=== PATIENT | male | born 1955 | race Caucasian/White ===

== ENCOUNTER 2021-03-24 20:50 | Inpatient (IN) ==
[2021-03-24] MEDS ORDERED: IOPAMIDOL 100 ML BOTTLE IV ONE (20:51)
[2021-03-24] MEDS ORDERED: KETOROLAC 15 MG/ML VIAL IV ONE (21:26)
[2021-03-24 21:50] LABS: POC Blood Urea Nitrogen 18 mg/dL (6-20); POC CO2 23 mmol/L (22-30); POC Calcium, Ionized 1.08 mmEq/L (1.16-1.32); POC Chloride 94 mEq/L (96-108); POC Creatinine 1.1 mg/dL (0.6-1.2); POC Glucose, Random 114 mg/dL (70-105); POC Hematocrit 42 % (41-55); POC Potassium 3.6 mEql/L (3.3-5.1); POC Sodium 128 mEq/L (133-145)
[2021-03-24 22:30] LABS: Basophils # (Auto) 0.03 K/mcL (0.00-0.20); Basophils % (Auto) 0.3 % (0.0-2.0); Eosinophils # (Auto) 0 K/mcL (0.00-0.70); Eosinophils % (Auto) 0 % (0.0-7.0); Hematocrit 40.6 % (41.0-55.0); Hemoglobin 13.4 g/dL (13.5-16.5); Lymphocytes # (Auto) 0.33 K/mcL (1.50-4.80); Lymphocytes % (Auto) 3.1 % (15.0-49.0); Mean Cell Volume 82.4 fL (80.0-100.0); Mean Platelet Volume 10.6 fL (7.4-10.4); Monocytes % (Auto) 4.7 % (1.0-12.0); Neutrophils % (Auto) 91.9 % (38.0-78.0); Platelet Count 144 K/mcL (140-440); RBC 4.93 M/mcL (4.50-5.90); Red Cell Distribution Width 15.2 % (11.5-14.5); WBC 10.7 K/mcL (4.5-11.0)
[2021-03-24] MEDS ORDERED: VANCOMYCIN 1,500 MG in 0.9 % SODIUM CHLORIDE 500 ML IV ONE (23:36)
[2021-03-24] MEDS ORDERED: ONDANSETRON 4 MG/2 ML VIAL IV PRN (23:47)
[2021-03-24] MEDS ORDERED: cefTRIAXone 1 GM VIAL IV ONE (23:49)
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
[2021-03-25] MEDS: 0.9 % SODIUM CHLORIDE 10 ML SYRINGE IV SCH ×6 (01:45→21:45)
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
[2021-03-25] MEDS ORDERED: MAGNESIUM SULFATE 2 GM/50 ML BAG IV PRN (08:23)
[2021-03-25] MEDS ORDERED: ACETAMINOPHEN 325 MG TABLET PO PRN (08:23)
[2021-03-25] MEDS ORDERED: ONDANSETRON 4 MG ODT TABLET SL PRN (08:23)
[2021-03-25] MEDS ORDERED: BISACODYL 10 MG SUPP.RECT PR PRN (08:23)
[2021-03-25] MEDS ORDERED: POLYETHYLENE GLYCOL 3350 17 GM PACKET PO PRN (08:23)
[2021-03-25] MEDS ORDERED: MELATONIN 3 MG TABLET PO PRN (08:23)
[2021-03-25] MEDS ORDERED: POTASSIUM CHLORIDE 20 MEQ PACKET PO PRN (08:23)
[2021-03-25] MEDS ORDERED: ACETAMINOPHEN 650 MG/65 ML BAG IV PRN (08:23)
[2021-03-25] MEDS ORDERED: ONDANSETRON 4 MG/2 ML VIAL IV PRN (08:23)
[2021-03-25] MEDS ORDERED: POTASSIUM CHLORIDE 40 MEQ in DEXTROSE 5% IN WATER 500 ML IV PRN (08:23)
--- NOTE | 2021-03-25 08:29 | Internal Med History&Physical ---
HPI History of Present Illness Patient information: Note initiated : 03/25/21 at 8:29 am Service Date, if different from initiated Date: [] Patient: Stoney Oconnor 65 y/o M admitted on 03/25/21 for "bad lung". Chief Complaint: [] History of present illness: Mr. Oconnor is a 65 year [facility] M [facility] All Active Problems Allergic reaction (Acute) Cellulitis (Acute) Cigarette smoker (Chronic) History of CVA (cerebrovascular accident) (Chronic) Medical History Cigarette smoker Half pack per day declared on 07/18/2020 History of CVA (cerebrovascular accident) Per patient, reported on 07/18/2020. MEDS/ALLERGIES Home Medications and Allergies Home Medications Medication Instructions Recorded Confirmed Type No Known Home Meds 03/25/21 03/25/21 History Allergies Allergy/AdvReac Type Severity Reaction Status Date / Time Amoxicillin Allergy Severe Anaphylaxis Verified 03/24/21 20:51 EXAM Constitutional Vitals: Temp Pulse Resp BP Pulse Ox 98.6 F 103 H 14 110/66 97 03/25/21 08:00 03/25/21 08:00 03/25/21 08:00 03/25/21 08:00 03/25/21 08:00 DATA Data Completed and Pending Labs: Labs from last 24 hours 03/24/21 03/24/21 21:35 21:35 WBC 10.7 RBC 4.93 Hgb 13.4 L Hct 40.6 L POC Hct 42 MCV 82.4 MCH 27.2 MCHC 33.0 RDW 15.2 H Plt Count 144 MPV 10.6 H Neut % (Auto) 91.9 H Lymph % (Auto) 3.1 L [place] % (Auto) 4.7 Eos % (Auto) 0 Baso % (Auto) 0.3 Lymph # (Auto) 0.33 L [place] # (Auto) 0.50 Eos # (Auto) 0 Baso # (Auto) 0.03 Absolute Neutrophils 9.86 H POC Sodium 128 L POC Potassium 3.6 POC Chloride 94 L POC Total CO2 23 POC BUN 18 POC Creatinine 1.1 POC Glucose 114 H POC WB Ioniz Calcium 1.08 L A/P Time Spent With Patient Time: Total time spent is greater than 50% in coordination of care (as documented) at patient's floor/unit and/or counseling patient: QUALITY Stroke Symptom Onset Unknown: No VTE Deep Vein Thrombosis/Pulmonary Embolism Present on Admission: No
[2021-03-25] MEDS ORDERED: VANCOMYCIN PER PHARMACY IV SCH (08:30)
[2021-03-25] MEDS: HEPARIN 5,000 UNIT/ML VIAL SQ SCH ×2 (10:01→21:41)
[2021-03-25] MEDS: DOCUSATE SODIUM 100 MG CAPSULE PO SCH ×4 (10:01→21:42)
[2021-03-25] MEDS: VANCOMYCIN 1,000 MG in 0.9 % SODIUM CHLORIDE 250 ML IV SCH ×2 (10:01→21:41)
[2021-03-25] MEDS: MULTIVIT,THER IRON,CA,FA & MIN 1 TABLET PO SCH (10:01)
[2021-03-25] MEDS: 0.9 % SODIUM CHLORIDE 1,000 ML IV SCH (10:01)
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
[2021-03-25] MEDS: CLINDAMYCIN 600 MG in DEXTROSE 5% IN WATER 50 ML IV SCH ×4 (11:59→23:39)
[2021-03-25 14:50] LABS: Osmolality,Urine 981 mOSM/kg (80-1000)
[2021-03-25] MEDS: cefTRIAXone 2 GM in DEXTROSE 5% IN WATER 50 ML IV SCH (18:31)
[2021-03-25] MEDS ORDERED: SENNOSIDES 1 TABLET PO SCH (21:00)
[2021-03-25] MEDS: SENNOSIDES/DOCUSATE SODIUM 1 TAB TABLET PO SCH (21:42)
[2021-03-26] MEDS: 0.9 % SODIUM CHLORIDE 1,000 ML IV SCH (05:48)
[2021-03-26] MEDS: CLINDAMYCIN 600 MG in DEXTROSE 5% IN WATER 50 ML IV SCH ×3 (06:11→17:04)
[2021-03-26] MEDS: 0.9 % SODIUM CHLORIDE 10 ML SYRINGE IV SCH ×4 (06:13→20:32)
[2021-03-26 07:40] LABS: Basophils # (Auto) 0.02 K/mcL (0.00-0.20); Basophils % (Auto) 0.3 % (0.0-2.0); Eosinophils # (Auto) 0.01 K/mcL (0.00-0.70); Eosinophils % (Auto) 0.2 % (0.0-7.0); Hematocrit 33.8 % (41.0-55.0); Hemoglobin 11.2 g/dL (13.5-16.5); Lymphocytes % (Auto) 6.9 % (15.0-49.0); Mean Cell Volume 81.6 fL (80.0-100.0); Mean Corpuscular HGB Conc 33.1 g/dL (31.0-36.0); Mean Platelet Volume 11.4 fL (7.4-10.4); Monocytes # (Auto) 0.58 K/mcL (0.10-0.90); Monocytes % (Auto) 10.1 % (1.0-12.0); Neutrophils % (Auto) 82.5 % (38.0-78.0); Platelet Count 120 K/mcL (140-440); RBC 4.14 M/mcL (4.50-5.90); Red Cell Distribution Width 14.8 % (11.5-14.5); WBC 5.8 K/mcL (4.5-11.0)
[2021-03-26] MEDS: HEPARIN 5,000 UNIT/ML VIAL SQ SCH ×2 (08:38→21:53)
[2021-03-26] MEDS: MULTIVIT,THER IRON,CA,FA & MIN 1 TABLET PO SCH (08:38)
[2021-03-26] MEDS: DOCUSATE SODIUM 100 MG CAPSULE PO SCH ×2 (08:39→20:32)
[2021-03-26 08:56] LABS: ALT/SGPT 30 U/L (<40); AST/SGOT 50 U/L (<40); Albumin 2.9 gm/dL (3.2-5.2); Alkaline Phosphatase 126 U/L (39-117); Bilirubin,Direct 0.2 mg/dL (<0.3); Bilirubin,Total 0.3 mg/dL (0.1-1.0); Blood Urea Nitrogen 13 mg/dL (8-23); Calcium 8.3 mg/dL (8.6-10.4); Carbon Dioxide 25 mmol/L (22-30); Chloride 94 mmol/L (96-108); Glomerular Filtration Rate 89; Glucose 90 mg/dL (70-105); Lactate Dehydrogenase 188 U/L (135-225); Phosphorous 2.9 mg/dL (2.5-4.5); Triglycerides 132 mg/dL (<150); Uric Acid 3.8 mg/dL (2.5-8.0)
[2021-03-26] MEDS: cefTRIAXone 2 GM in DEXTROSE 5% IN WATER 50 ML IV SCH (09:19)
[2021-03-26] MEDS: VANCOMYCIN 1,000 MG in 0.9 % SODIUM CHLORIDE 250 ML IV SCH ×2 (10:05→21:56)
[2021-03-26] MEDS ORDERED: HYDROmorphone 0.5 MG/0.5 ML SYRINGE IV PRN (10:34)
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
--- NOTE | 2021-03-26 13:10 | General Surgery Consult Note ---
HPI Data of Consult Primary Care Provider: PCP No Consult Narrative Patient Information: Note initiated : 03/26/21 at 1:09 pm Service Date, if different from initiated Date: [] Patient: Stoney Oconnor 65 y/o M admitted on 03/25/21 for "bad lung". Chief Complaint: [] cc:: CC: Panchito Haas PFSH PFSH All Active Problems Allergic reaction (Acute) Cellulitis (Acute) Cigarette smoker (Chronic) History of CVA (cerebrovascular accident) (Chronic) Medical History Cigarette smoker Half pack per day declared on 07/18/2020 History of CVA (cerebrovascular accident) Per patient, reported on 07/18/2020. MEDS/ALLERGIES Home Medications and Allergies Home Medications Medication Instructions Recorded Confirmed Type No Known Home Meds 03/25/21 03/25/21 History Allergies Allergy/AdvReac Type Severity Reaction Status Date / Time Amoxicillin Allergy Severe Anaphylaxis Verified 03/24/21 20:51 Physical Examination Vital Signs Vital signs: Temp Pulse Resp BP Pulse Ox 98.9 F 74 15 87/55 97 03/26/21 12:38 03/26/21 12:38 03/26/21 12:38 03/26/21 12:38 03/26/21 11:01 Results Labs Result diagrams: 03/26/21 06:11 03/26/21 06:11 Labs: Abnormal lab results 03/26/21 03/26/21 Range/Units 06:11 06:11 RBC 4.14 L (4.50-5.90) M/mcL Hgb 11.2 L (13.5-16.5) g/dL Hct 33.8 L (41.0-55.0) % RDW 14.8 H (11.5-14.5) % Plt Count 120 L (140-440) K/mcL MPV 11.4 H (7.4-10.4) fL Neut % (Auto) 82.5 H (38.0-78.0) % Lymph % (Auto) 6.9 L (15.0-49.0) % Lymph # (Auto) 0.40 L (1.50-4.80) K/mcL Sodium 127 L (133-145) mmol/L Chloride 94 L (96-108) mmol/L Calcium 8.3 L (8.6-10.4) mg/dL AST 50 H (<40) U/L Alkaline Phosphatase 126 H (39-117) U/L Albumin 2.9 L (3.2-5.2) gm/dL Diabetes panel 03/26/21 Range/Units 06:11 Sodium 127 L (133-145) mmol/L Potassium 3.3 (3.3-5.1) mmol/L Chloride 94 L (96-108) mmol/L Carbon Dioxide 25 (22-30) mmol/L BUN 13 (8-23) mg/dL Creatinine 0.9 (0.7-1.2) mg/dL Glucose 90 (70-105) mg/dL Calcium 8.3 L (8.6-10.4) mg/dL AST 50 H (<40) U/L ALT 30 (<40) U/L Alkaline Phosphatase 126 H (39-117) U/L Total Protein 5.9 (5.9-8.4) gm/dL Albumin 2.9 L (3.2-5.2) gm/dL Triglycerides 132 (<150) mg/dL Calcium panel 03/26/21 Range/Units 06:11 Calcium 8.3 L (8.6-10.4) mg/dL Phosphorus 2.9 (2.5-4.5) mg/dL Albumin 2.9 L (3.2-5.2) gm/dL Pituitary panel 03/26/21 Range/Units 06:11 Sodium 127 L (133-145) mmol/L Potassium 3.3 (3.3-5.1) mmol/L Chloride 94 L (96-108) mmol/L Carbon Dioxide 25 (22-30) mmol/L BUN 13 (8-23) mg/dL Creatinine 0.9 (0.7-1.2) mg/dL Glucose 90 (70-105) mg/dL Calcium 8.3 L (8.6-10.4) mg/dL Adrenal panel 03/26/21 Range/Units 06:11 Sodium 127 L (133-145) mmol/L Potassium 3.3 (3.3-5.1) mmol/L Chloride 94 L (96-108) mmol/L Carbon Dioxide 25 (22-30) mmol/L BUN 13 (8-23) mg/dL Creatinine 0.9 (0.7-1.2) mg/dL Glucose 90 (70-105) mg/dL Calcium 8.3 L (8.6-10.4) mg/dL Total Bilirubin 0.3 (0.1-1.0) mg/dL AST 50 H (<40) U/L ALT 30 (<40) U/L Alkaline Phosphatase 126 H (39-117) U/L Total Protein 5.9 (5.9-8.4) gm/dL Albumin 2.9 L (3.2-5.2) gm/dL All other labs normal. A/P Time Spent With Patient Time: Total time spent is greater than 50% in coordination of care (as documented) at patient's floor/unit and/or counseling patient:
[2021-03-26] MEDS: HYDROcodone/APAP 5/325MG TABLET PO PRN ×2 (15:39→21:57)
--- NOTE | 2021-03-26 16:38 | Orthopedic Consult Note ---
HPI Data of Consult Consult date: 03/26/21 Requesting physician: Panchito Haas Primary Care Provider: PCP No Consult Narrative Patient Information: Note initiated : 03/26/21 at 4:33 pm Service Date, if different from initiated Date: [] Patient: Stoney Oconnor 65 y/o M admitted on 03/25/21 for "bad lung". Chief Complaint: Right lower leg pain/swelling Chief complaint: Pt presented to the ED with conplaints of lower R leg pain and swelling. Reason for consult: Hospitalist requested orthopaedics consult for possible I&D cc:: CC: Panchito Haas PFSH PFSH All Active Problems (Updated 03/26/21 @ 16:41 by Farhad Gregory PA-C) Abscess (Acute) Allergic reaction (Acute) Cellulitis (Acute) Cigarette smoker (Chronic) History of CVA (cerebrovascular accident) (Chronic) Medical History Cigarette smoker Half pack per day declared on 07/18/2020 History of CVA (cerebrovascular accident) Per patient, reported on 07/18/2020. MEDS/ALLERGIES Home Medications and Allergies Home Medications Medication Instructions Recorded Confirmed Type No Known Home Meds 03/25/21 03/25/21 History Allergies Allergy/AdvReac Type Severity Reaction Status Date / Time Amoxicillin Allergy Severe Anaphylaxis Verified 03/24/21 20:51 Physical Examination Ankle & Foot right: Ankle appearance: swelling and erythema Previous incision location: Previous surgical muscle flap transfer on lower leg; medial ankle and calf Foot appearance: normal Tenderness with palpation: anteromedial ankle and medial ankle Ankle pain worse with weight bearing: Yes Strength: dorsiflexion: 5/5 Strength: plantarflexion: 5/5 A/P Assessment and plan (1) Abscess: Assessment and plan: After consulting with Dr. Dangelo he recommended that the patient be transferred to [place] for definitive treatment of the abscess due potential complications due to previous muscle flap transfer procedure. Status: Acute Comment: R ankle abscess in patient with previous muscle flap transfer. Time Spent With Patient Time: Total time spent is greater than 50% in coordination of care (as documented) at patient's floor/unit and/or counseling patient:
[2021-03-26] MEDS: SENNOSIDES/DOCUSATE SODIUM 1 TAB TABLET PO SCH (20:32)
[2021-03-27] MEDS: CLINDAMYCIN 600 MG in DEXTROSE 5% IN WATER 50 ML IV SCH ×3 (00:42→11:36)
[2021-03-27] MEDS: 0.9 % SODIUM CHLORIDE 1,000 ML IV SCH (00:50)
[2021-03-27] MEDS: 0.9 % SODIUM CHLORIDE 10 ML SYRINGE IV SCH ×2 (06:43→14:08)
[2021-03-27 07:54] LABS: Basophils # (Auto) 0.03 K/mcL (0.00-0.20); Basophils % (Auto) 0.5 % (0.0-2.0); Eosinophils # (Auto) 0.03 K/mcL (0.00-0.70); Eosinophils % (Auto) 0.5 % (0.0-7.0); Hemoglobin 10.8 g/dL (13.5-16.5); Lymphocytes # (Auto) 0.62 K/mcL (1.50-4.80); Mean Cell Volume 81.9 fL (80.0-100.0); Mean Corpuscular HGB Conc 32.7 g/dL (31.0-36.0); Monocytes % (Auto) 8.9 % (1.0-12.0); Neutrophils % (Auto) 79.1 % (38.0-78.0); Platelet Count 122 K/mcL (140-440); RBC 4.03 M/mcL (4.50-5.90); WBC 5.6 K/mcL (4.5-11.0)
[2021-03-27] MEDS: MULTIVIT,THER IRON,CA,FA & MIN 1 TABLET PO SCH (08:08)
[2021-03-27] MEDS: HEPARIN 5,000 UNIT/ML VIAL SQ SCH (08:08)
[2021-03-27] MEDS: DOCUSATE SODIUM 100 MG CAPSULE PO SCH (08:08)
[2021-03-27] MEDS: cefTRIAXone 2 GM in DEXTROSE 5% IN WATER 50 ML IV SCH (08:09)
[2021-03-27] MEDS: VANCOMYCIN 1,000 MG in 0.9 % SODIUM CHLORIDE 250 ML IV SCH (09:02)
[2021-03-27 10:01] LABS: ALT/SGPT 29 U/L (<40); AST/SGOT 29 U/L (<40); Albumin 2.6 gm/dL (3.2-5.2); Albumin/Globulin Ratio 0.9 (1.0-2.3); Alkaline Phosphatase 118 U/L (39-117); Bilirubin,Direct < 0.2 mg/dL (0-0.3); Bilirubin,Total 0.2 mg/dL (0.1-1.0); Blood Urea Nitrogen 11 mg/dL (8-23); Calcium 8.4 mg/dL (8.6-10.4); Carbon Dioxide 22 mmol/L (22-30); Chloride 99 mmol/L (96-108); Glomerular Filtration Rate 94; Glucose 98 mg/dL (70-105); Lactate Dehydrogenase 191 U/L (135-225); Phosphorous 4.4 mg/dL (2.5-4.5); Triglycerides 113 mg/dL (<150); Uric Acid 3.4 mg/dL (2.5-8.0)
--- NOTE | 2021-03-27 10:03 | XRay Report ---
CLINICAL INFORMATION: Dyspnea COMPARISON: 12/02/2020 FINDINGS: Heart size, mediastinum and pulmonary vessels are normal. Lung volumes are elevated with wall thickening of the bronchi compatible with COPD. There is minimal scattered scarring both mid and lower lungs. No infiltrates. There are no effusions or evidence of pneumothorax. Old nonunified fractures of the lateral right fourth through eighth ribs result in moderate deformity. IMPRESSION: No acute cardiopulmonary disease. COPD. Multiple nonunified old right lateral rib fractures with moderate deformity Interpreted and Authenticated by: Henry Sandoval 03/27/21
[2021-03-27] MEDS: HYDROcodone/APAP 5/325MG TABLET PO PRN ×2 (10:22→17:20)
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
[2021-03-31 15:49] LABS: Sodium, Urine Random 20 mmol/L
== END 2021-03-27 18:02 | disposition short-term general hospital (02) | DRG 603 ==
LOC: ED 20:50 → MEDSUR 03-25 00:22
PROVIDERS: ADMIT Internal Medicine; ATTEND Internal Medicine